=== PATIENT | female | born 1960 | race Caucasian/White ===

== ENCOUNTER 2018-01-06 07:04 | Emergency (ER) | payer BC ==
[2018-01-06] MEDS: predniSONE 20 MG TAB PO (07:34)
[2018-01-06] MEDS: ALBUTEROL 0.083% (NEB) 2.5 MG/3 ML AMP INH (07:35)
[2018-01-06] MEDS: IPRATROPIUM (NEB) 0.5 MG/2.5 ML AMP INH (07:35)
[2018-01-06] MEDS: AZITHROMYCIN 250 MG TAB PO (07:35)
== END 2018-01-06 08:59 | disposition home or self-care (01) ==
LOC: FTE 07:04
DX: J20.9 Acute bronchitis, unspecified (principal); H10.33 Unspecified acute conjunctivitis, bilateral
CPT/HCPCS: 94664; 99284-25

== ENCOUNTER 2018-01-13 12:11 | Emergency (ER) | payer BC ==
[2018-01-13] MEDS: HYDROCODONE/APAP (5/325) TAB PO (12:57)
[2018-01-13] MEDS: ONDANSETRON 4 MG INJ IV ×2 (13:25→14:49)
[2018-01-13] MEDS: HYDROmorphONE 0.5 MG/0.5 ML SYG IV ×3 (13:25→16:03)
[2018-01-13 13:30] LABS: ADD MAN DIFF? NO
[2018-01-13 13:32] LABS: ABNORMAL IP MESSAGE 1; BASOPHIL # 0.1 10^3/ul (0.0-0.1); BASOPHILS % 0.3 % (0.0-2.0); EOSINOPHILS % 0.1 % (0.0-7.0); HEMATOCRIT 47.3 % (37.0-47.0); HEMOGLOBIN 15.7 g/dl (12.0-16.0); LYMPHOCYTES # 1.7 10^3/ul (0.8-2.9); LYMPHOCYTES % 9.9 % (15.0-51.0); MEAN CORPUSCULAR HEMOGLOBIN 31.5 pg (29.0-33.0); MEAN CORPUSCULAR HGB CONC 33.2 g/dl (32.0-37.0); MEAN CORPUSCULAR VOLUME 94.8 fl (82.0-101.0); MEAN PLATELET VOLUME 9.6 fl (7.4-10.4); MONOCYTE # 1.7 10^3/ul (0.3-0.9); MONOCYTES % 10.1 % (0.0-11.0); NEUTROPHIL # 13.1 10^3/ul (1.6-7.5); NEUTROPHILS % 78.4 % (39.0-77.0); PLATELET COUNT 305 10^3/UL (140-415); RED BLOOD COUNT 4.99 10^6/ul (4.20-5.40)
[2018-01-13 13:32] LABS: WHITE BLOOD COUNT 16.7 10^3/ul (4.8-10.8)
[2018-01-13 13:34] LABS: POSITIVE DIFF @See below
[2018-01-13 13:49] LABS: ANION GAP 16 (8-16); BLOOD UREA NITROGEN 22 mg/dl (7-20); CALCIUM 9.5 mg/dl (8.4-10.2); CARBON DIOXIDE 26 mmol/L (21-31); CHLORIDE 106 mmol/L (97-110); CREATININE 0.89 mg/dl (0.44-1.00); GLUCOSE 85 mg/dl (70-220); POTASSIUM 4.6 mmol/L (3.5-5.1); SODIUM 143 mmol/L (135-144)
[2018-01-13 14:04] LABS: INR 0.92; PROTIME 12.4 Sec (11.9-14.9)
[2018-01-13 14:05] LABS: PARTIAL THROMBOPLASTIN TIME 25.3 Sec (25.0-35.0)
[2018-01-13] MEDS: IOHEXOL 100 ML (14:40)
[2018-01-13] MEDS: SOD CHLORIDE 0.9% 100 ML (14:40)
[2018-01-13] MEDS: IOHEXOL 350MG/ML 50 ML BTL (14:40)
== END 2018-01-13 18:54 | disposition home or self-care (01) ==
LOC: E/R 12:11 → FTE 18:54
DX: S82.831A Other fracture of upper and lower end of right fibula, initial encounter for closed fracture (principal); W18.30XA Fall on same level, unspecified, initial encounter; Y92.410 Unspecified street and highway as the place of occurrence of the external cause
CPT/HCPCS: 73562; 73590; 73610-RT; 73706; 80048; 85025; 85610; 85730; 96374; 96375; 96376; 99285-25

== ENCOUNTER 2018-01-22 06:59 | Emergency (ER) | payer BC ==
[2018-01-22] MEDS: ONDANSETRON (ODT) 4 MG TAB ODT (07:23)
[2018-01-22] MEDS: OXYCODONE/ACETAMINOPHEN (5/325) TAB PO (07:23)
== END 2018-01-22 09:28 | disposition home or self-care (01) ==
LOC: FTE 06:59
DX: S82.454A Nondisplaced comminuted fracture of shaft of right fibula, initial encounter for closed fracture (principal); X58.XXXA Exposure to other specified factors, initial encounter; Y92.9 Unspecified place or not applicable
CPT/HCPCS: 29505; 73700; 93971; 99285-25

== ENCOUNTER 2018-02-06 16:40 | Day surgery (SDC) | payer OTHER ==
[~2018-02-06 16:40] MED LIST: CEFAZOLIN 1 GM INJ; PROPOFOL 200 MG INJ; SUCCINYLCHOLINE CHLORIDE 100 MG/5 ML SYG IV
[2018-02-06] MEDS ORDERED: NEOMYC/POLYMYX/BACIT 30 GM OINT (19:31)
[2018-02-06] MEDS ORDERED: NEOSTIGMINE 3 MG/3 ML SYRINGE (20:23)
[2018-02-06] MEDS ORDERED: ROCURONIUM 50 MG INJ (20:23)
[2018-02-06] MEDS ORDERED: PROPOFOL 20 ML (20:23)
[2018-02-06] MEDS ORDERED: GLYCOPYRROLATE 0.4 MG INJ (20:23)
[2018-02-06] MEDS ORDERED: CEFAZOLIN 1 GM INJ (20:23)
[2018-02-06] MEDS ORDERED: ROPIVACAINE 0.5 % 30 ML VIAL (20:24)
[2018-02-06] MEDS ORDERED: ONDANSETRON 4 MG INJ (20:24)
[2018-02-06] MEDS ORDERED: FENTAnyl 50 MCG/ML VIAL (20:24)
[2018-02-06] MEDS ORDERED: MIDAZOLAM 1 MG/ML 2 ML INJ (20:24)
[2018-02-06] MEDS ORDERED: DEXAMETHASONE 4 MG/ML 1 ML INJ ×2 (20:24→20:51)
[2018-02-06] MEDS ORDERED: HYDROCORTISONE 100 MG INJ IV (20:30)
[2018-02-06] MEDS ORDERED: KETOROLAC 30 MG INJ ×2 (20:48→23:00)
[2018-02-06] MEDS ORDERED: HYDROCORTISONE 100 MG INJ (21:36)
[2018-02-06] MEDS ORDERED: LABETALOL HCL 20MG INJ (22:02)
[2018-02-06] MEDS ORDERED: SUGAMMADEX SODIUM 200 MG/2 ML VIAL IV (22:50)
[2018-02-06] MEDS ORDERED: hydrALAzine 20 MG INJ (22:51)
[2018-02-06] MEDS ORDERED: IPRATROPIUM (NEB) 0.5 MG/2.5 ML AMP HHN (23:00)
[2018-02-06] MEDS ORDERED: hydrALAzine 20 MG INJ IV (23:00)
[2018-02-06] MEDS ORDERED: EPHEDrine SULFATE 50 MG/5 ML SYG IV (23:00)
[2018-02-06] MEDS ORDERED: TRIMETHOBENZAMIDE 100 MG/ML VIAL IM (23:00)
[2018-02-06] MEDS ORDERED: HYDROmorphONE (0.2 MG/ML) 10ML SYG IV ×3 (23:00)
[2018-02-06] MEDS ORDERED: OXYCODONE/ACETAMINOPHEN (5/325) TAB PO ×2 (23:00)
[2018-02-06] MEDS ORDERED: FENTAnyl 50 MCG/ML VIAL IV ×3 (23:00)
[2018-02-06] MEDS ORDERED: LABETALOL HCL 20MG INJ IV (23:00)
[2018-02-06] MEDS ORDERED: MEPERIDINE 25 MG INJ IV (23:00)
[2018-02-06] MEDS ORDERED: ONDANSETRON 4 MG INJ IV (23:00)
[2018-02-06] MEDS ORDERED: ALBUTEROL 0.083% (NEB) 2.5 MG/3 ML AMP HHN (23:00)
[2018-02-06] MEDS ORDERED: MIDAZOLAM 1 MG/ML 2 ML INJ IV (23:00)
[2018-02-06] MEDS ORDERED: METOCLOPRAMIDE 10 MG INJ (23:00)
[2018-02-06] MEDS ORDERED: DIPHENHYDRAMINE 50 MG INJ IV (23:00)
== END 2018-02-07 00:31 | disposition home or self-care (01) ==
LOC: SDS 16:40
DX: S82.861D Displaced Maisonneuve's fracture of right leg, subsequent encounter for closed fracture with routine healing (principal); X58.XXXD Exposure to other specified factors, subsequent encounter; I10 Essential (primary) hypertension; E78.00 Pure hypercholesterolemia, unspecified; E03.9 Hypothyroidism, unspecified
CPT/HCPCS: 27792; 73610-RT; 82306

== ENCOUNTER 2018-05-05 07:20 | Emergency (ER) | payer BC ==
[2018-05-05] MEDS: IBUPROFEN 800 MG TAB PO (08:17)
[2018-05-05] MEDS: ONDANSETRON (ODT) 4 MG TAB ODT (08:17)
[2018-05-05] MEDS: HYDROCODONE/APAP (5/325) TAB PO (08:59)
== END 2018-05-05 10:03 | disposition home or self-care (01) ==
LOC: FTE 07:20
DX: S42.202A Unspecified fracture of upper end of left humerus, initial encounter for closed fracture (principal); S42.292A Other displaced fracture of upper end of left humerus, initial encounter for closed fracture; W18.30XA Fall on same level, unspecified, initial encounter; Y92.9 Unspecified place or not applicable
CPT/HCPCS: 29105; 73060; 99283-25

== ENCOUNTER 2018-06-19 08:44 | Observation (INO) | payer BC ==
[2018-06-19] MEDS: ASPIRIN 325 MG TAB PO (09:56)
[2018-06-19] MEDS: SOD CHLORIDE 0.9% 1,000 ML IV ×2 (09:57→13:03)
[2018-06-19 10:04] LABS: ADD MAN DIFF? NO
[2018-06-19 10:12] LABS: WHITE BLOOD COUNT 11.7 10^3/ul (4.8-10.8)
[2018-06-19 10:12] LABS: BASOPHILS % 0.3 % (0.0-2.0); EOSINOPHILS # 0.1 10^3/ul (0.0-0.5); EOSINOPHILS % 1.2 % (0.0-7.0); HEMATOCRIT 46.1 % (37.0-47.0); HEMOGLOBIN 15.1 g/dl (12.0-16.0); LYMPHOCYTES # 2.3 10^3/ul (0.8-2.9); LYMPHOCYTES % 19.5 % (15.0-51.0); MEAN CORPUSCULAR HEMOGLOBIN 30.9 pg (29.0-33.0); MEAN CORPUSCULAR HGB CONC 32.8 g/dl (32.0-37.0); MEAN CORPUSCULAR VOLUME 94.3 fl (82.0-101.0); MEAN PLATELET VOLUME 9.7 fl (7.4-10.4); MONOCYTE # 1.3 10^3/ul (0.3-0.9); NEUTROPHIL # 7.9 10^3/ul (1.6-7.5); NEUTROPHILS % 67.2 % (39.0-77.0); PLATELET COUNT 316 10^3/UL (140-415); RED BLOOD COUNT 4.89 10^6/ul (4.20-5.40); RED CELL DISTRIBUTION WIDTH 13.8 % (11.5-14.5)
[2018-06-19 10:32] LABS: ALANINE AMINOTRANSFERASE 28 IU/L (13-69); ALBUMIN 3.8 g/dl (3.3-4.9); ALBUMIN/GLOBULIN RATIO 1.26; ALKALINE PHOSPHATASE 121 IU/L (42-121); ANION GAP 17 (8-16); ASPARTATE AMINO TRANSFERASE 27 IU/L (15-46); BILIRUBIN,INDIRECT 0.3 mg/dl (0-1.1); BILIRUBIN,TOTAL 0.3 mg/dl (0.2-1.3); BLOOD UREA NITROGEN 18 mg/dl (7-20); CALCIUM 9.2 mg/dl (8.4-10.2); CARBON DIOXIDE 27 mmol/L (21-31); CHLORIDE 105 mmol/L (97-110); CHOL/HDL RATIO 5.7 RATIO; CHOLESTEROL 168 mg/dl (100-200); CREATININE 0.95 mg/dl (0.44-1.00); GLUCOSE 109 mg/dl (70-220); HDL CHOLESTEROL 29 mg/dl (35-98); INR 0.93; LDL CHOLESTEROL,CALCULATED 74 mg/dl; POTASSIUM 4.1 mmol/L (3.5-5.1); PROTIME 12.6 Sec (11.9-14.9); SODIUM 145 mmol/L (135-144); TOTAL PROTEIN 6.8 g/dl (6.1-8.1); TRIGLYCERIDES 323 mg/dl (0-149)
[2018-06-19 10:33] LABS: PARTIAL THROMBOPLASTIN TIME 28.9 Sec (25.0-35.0)
[2018-06-19 10:38] LABS: HEMOGLOBIN A1C 5.7 % (0-5.9)
[2018-06-19 10:43] LABS: TROPONIN-I < 0.012 ng/ml (0.000-0.120)
[2018-06-19] MEDS ORDERED: ONDANSETRON 4 MG INJ IV ×2 (13:00→15:30)
[2018-06-19] MEDS: HYDROCORTISONE 5 MG TAB PO ×3 (13:00→21:47)
[2018-06-19] MEDS ORDERED: ACETAMINOPHEN 325 MG TAB PO ×2 (13:00→15:30)
[2018-06-19] MEDS: ASPIRIN 81 MG TAB PO (13:00)
[2018-06-19] MEDS ORDERED: LORAZEPAM 2 MG INJ IV ×2 (15:00→15:30)
[2018-06-19] MEDS ORDERED: MAGNESIUM HYDROXIDE 30ML CUP PO (15:30)
[2018-06-19] MEDS ORDERED: HYDROCODONE/APAP (5/325) TAB PO (15:30)
[2018-06-19] MEDS ORDERED: NITROGLYCERIN (SL) 0.4 MG TAB SL (15:30)
[2018-06-19] MEDS ORDERED: hydrALAzine 20 MG INJ IV (15:30)
[2018-06-19] MEDS ORDERED: NA PHOSPHATE/BIPHOS 133 ML ENEMA PR (15:30)
[2018-06-19] MEDS ORDERED: DOCUSATE SODIUM 100 MG CAP PO (15:30)
[2018-06-19] MEDS ORDERED: NACL 0.9% 3 ML SYG IV (15:30)
[2018-06-19] MEDS ORDERED: ALBUTEROL/IPRATROPIUM (NEB) 3 ML AMP HHN (15:30)
[2018-06-19] MEDS ORDERED: morphine 2 MG INJ IV (15:30)
[2018-06-19] MEDS: ASPIRIN (EC) 325 MG TAB PO (15:30)
[2018-06-19 15:59] LABS: FREE T4 (FREE THYROXINE) 1.55 ng/dl (0.64-1.79)
[2018-06-19] MEDS: LORAZEPAM 2 MG INJ IV (16:20)
[2018-06-19] MEDS: PANTOPRAZOLE (EC) 40 MG TAB PO (16:33)
[2018-06-19] MEDS: SOD CHLORIDE 0.45% 1,000 ML IV (16:36)
[2018-06-19 16:52] LABS: INR 0.93; PROTIME 12.6 Sec (11.9-14.9)
[2018-06-19] MEDS: ATORVASTATIN 80 MG TAB PO (18:06)
[2018-06-19] MEDS ORDERED: HYDROCORTISONE 5 MG PO (21:00)
[2018-06-19] MEDS ORDERED: ATORVASTATIN 20 MG TAB PO (21:00)
[2018-06-19] MEDS: FAMOTIDINE 20 MG TAB PO (21:47)
[2018-06-19] MEDS: HEPARIN 5,000 UNIT/0.5 ML VIAL SC (21:50)
[2018-06-20] MEDS: SOD CHLORIDE 0.45% 1,000 ML IV (04:41)
[2018-06-20] MEDS: LEVOTHYROXINE 125 MCG TAB PO (06:15)
[2018-06-20 07:51] LABS: ADD MAN DIFF? NO
[2018-06-20 07:58] LABS: BASOPHILS % 0.4 % (0.0-2.0); EOSINOPHILS # 0.2 10^3/ul (0.0-0.5); EOSINOPHILS % 2.4 % (0.0-7.0); HEMATOCRIT 43.6 % (37.0-47.0); HEMOGLOBIN 14.4 g/dl (12.0-16.0); LYMPHOCYTES # 2.2 10^3/ul (0.8-2.9); LYMPHOCYTES % 26.1 % (15.0-51.0); MEAN CORPUSCULAR HEMOGLOBIN 31.4 pg (29.0-33.0); MEAN PLATELET VOLUME 9.9 fl (7.4-10.4); MONOCYTE # 1.3 10^3/ul (0.3-0.9); MONOCYTES % 15.5 % (0.0-11.0); NEUTROPHIL # 4.5 10^3/ul (1.6-7.5); PLATELET COUNT 276 10^3/UL (140-415); RED BLOOD COUNT 4.59 10^6/ul (4.20-5.40); RED CELL DISTRIBUTION WIDTH 13.9 % (11.5-14.5)
[2018-06-20 07:58] LABS: WHITE BLOOD COUNT 8.3 10^3/ul (4.8-10.8)
[2018-06-20 08:20] LABS: ANION GAP 12 (8-16); BLOOD UREA NITROGEN 12 mg/dl (7-20); CARBON DIOXIDE 26 mmol/L (21-31); CHLORIDE 111 mmol/L (97-110); CHOLESTEROL 152 mg/dl (100-200); CREATININE 0.71 mg/dl (0.44-1.00); GLUCOSE 95 mg/dl (70-220); HDL CHOLESTEROL 25 mg/dl (35-98); LDL CHOLESTEROL,CALCULATED 75 mg/dl; MAGNESIUM 1.8 mg/dl (1.7-2.5); PHOSPHORUS 3.9 mg/dl (2.5-4.9); POTASSIUM 4.1 mmol/L (3.5-5.1); SODIUM 145 mmol/L (135-144); TRIGLYCERIDES 258 mg/dl (0-149)
[2018-06-20 08:48] LABS: HEMOGLOBIN A1C 5.6 % (0-5.9)
[2018-06-20] MEDS ORDERED: NEBIVOLOL 5 MG TAB PO (09:00)
[2018-06-20] MEDS: ATORVASTATIN 80 MG TAB PO (09:13)
[2018-06-20] MEDS: FAMOTIDINE 20 MG TAB PO (09:13)
[2018-06-20] MEDS: VENLAFAXINE (XR) 75 MG CAP PO (09:13)
[2018-06-20] MEDS: ASPIRIN (EC) 325 MG TAB PO (09:13)
[2018-06-20] MEDS: PANTOPRAZOLE (EC) 40 MG TAB PO (09:13)
[2018-06-20] MEDS: HYDROCORTISONE 5 MG TAB PO (09:14)
[2018-06-20] MEDS: HEPARIN 5,000 UNIT/0.5 ML VIAL SC (09:19)
[2018-06-20 09:24] LABS: THYROID STIMULATING HORMONE < 0.015 MIU/L (0.465-4.680)
== END 2018-06-20 12:13 | disposition home or self-care (01) ==
LOC: E/R 08:44 → TEL 12:43
DX: I63.9 Cerebral infarction, unspecified (principal); G81.94 Hemiplegia, unspecified affecting left nondominant side; I10 Essential (primary) hypertension
CPT/HCPCS: 36415; 70450; 70545; 70548; 70552; 71045; 80048; 80053; 80061; 83036; 83735; 84100; 84439; 84443; 84484; 85025; 85610; 85730; 92610; 93005; 93306; 93880; 96360; 96361; 97161; 99285-25; G0378

== ENCOUNTER 2019-01-08 14:30 | Day surgery (SDC) | payer OTHER, BC ==
[~2019-01-08 14:30] MED LIST changes: -SUCCINYLCHOLINE CHLORIDE 100 MG/5 ML SYG IV
[2019-01-08] MEDS ORDERED: FENTAnyl 50 MCG/ML VIAL (15:58)
[2019-01-08] MEDS ORDERED: ONDANSETRON 4 MG INJ (15:59)
[2019-01-08] MEDS ORDERED: ONDANSETRON 4 MG INJ IV (16:00)
[2019-01-08] MEDS ORDERED: hydrALAzine 20 MG INJ IV (16:00)
[2019-01-08] MEDS ORDERED: HYDROmorphONE 1 MG/5 ML IV SYRINGE IV ×3 (16:00)
[2019-01-08] MEDS ORDERED: LABETALOL HCL 20MG INJ IV (16:00)
[2019-01-08] MEDS ORDERED: ALBUTEROL 0.083% (NEB) 2.5 MG/3 ML AMP HHN (16:00)
[2019-01-08] MEDS ORDERED: ROPIVACAINE 0.5 % 30 ML VIAL (16:00)
[2019-01-08] MEDS ORDERED: EPHEDrine SULFATE 50 MG/5 ML SYG IV (16:00)
[2019-01-08] MEDS ORDERED: TRIMETHOBENZAMIDE 100 MG/ML VIAL IM (16:00)
[2019-01-08] MEDS ORDERED: DIPHENHYDRAMINE 50 MG INJ IV (16:00)
[2019-01-08] MEDS ORDERED: IPRATROPIUM (NEB) 0.5 MG/2.5 ML AMP HHN (16:00)
[2019-01-08] MEDS ORDERED: MIDAZOLAM 1 MG/ML 2 ML INJ IV (16:00)
[2019-01-08] MEDS ORDERED: FENTAnyl 50 MCG/ML VIAL IV ×3 (16:00)
[2019-01-08] MEDS ORDERED: MEPERIDINE 25 MG INJ IV (16:00)
[2019-01-08] MEDS ORDERED: MIDAZOLAM 1 MG/ML 2 ML INJ (16:06)
[2019-01-08] MEDS ORDERED: morphine 2 MG INJ IV (16:30)
[2019-01-08] MEDS: POLYMYXIN B 500000 UNIT INJ (17:00)
[2019-01-08] MEDS: BACITRACIN 50000 UNITS INJ IRR (17:01)
[2019-01-08] MEDS ORDERED: DEXAMETHASONE 4 MG/ML 5 ML INJ (17:09)
[2019-01-08] MEDS: BACITRACIN/POLYMYXIN 28.35 GM OINT TOP (17:17)
[2019-01-08] MEDS: KETOROLAC 30 MG INJ IV (18:07)
== END 2019-01-08 18:57 | disposition home or self-care (01) ==
LOC: SDS 14:30
DX: T84.84XD Pain due to internal orthopedic prosthetic devices, implants and grafts, subsequent encounter (principal); Y79.3 Surgical instruments, materials and orthopedic devices (including sutures) associated with adverse incidents; L91.0 Hypertrophic scar; I10 Essential (primary) hypertension; E78.5 Hyperlipidemia, unspecified; E03.9 Hypothyroidism, unspecified
CPT/HCPCS: 20670; 71045; 73610-RT; 82306; 87070; 87075; 87102; 88300; 88304